=== PATIENT | female | born 1990 ===

== ENCOUNTER 2024-09-27 06:40 | Outpatient (REF) | payer OTHER, SELFPAY ==
--- NOTE | ~2024-09-27 | US_ITS ---
CLINICAL HISTORY: ABD PAIN WITH REFLUX US abdomen complete Comparison: None provided Findings: The visualized pancreas is normal. The aorta and inferior vena cava are normal caliber. The liver is normal in size and echotexture. There is no intrahepatic bile duct dilatation. The common duct is 1 mm in diameter. The gallbladder is normal. There is no sonographic Servin sign. The main portal vein is antegrade. The right kidney is 11.0 cm in length. The left kidney is 11.5 cm in length. The spleen is normal. IMPRESSION: 1. Normal complete abdominal ultrasound. This document has been electronically signed by: Deb Davis on 09/28/2024 09:03:44
== END 2024-09-27 06:41 | disposition home or self-care (01) ==
LOC: HO.UMASIMG 06:40
PROVIDERS: Visit Provider Internal Medicine
DX: K21.9 Gastro-esophageal reflux disease without esophagitis (principal)
CPT/HCPCS: 76700

== ENCOUNTER → 2024-09-27 11:30 | Outpatient (BNV) | payer OTHER, SELFPAY | PROVIDERS: Visit Provider Radiology Vascular & Interventional Radiology | DX: K21.9 Gastro-esophageal reflux disease without esophagitis (principal); R10.9 Unspecified abdominal pain | CPT/HCPCS: 76700 ==